=== PATIENT | female | born 1985 | race Hispanic/Latino ===

== ENCOUNTER 2018-09-20 19:16 | Inpatient (IN) | payer MEDICAID ==
--- NOTE | 2018-09-20 20:49 | C.PDOC ---
History Of Present Illness 33 year old female presents to the ED requesting alcohol detox. Patient has been pre-screened. She states her last drink was 3 days ago and she is Pt is complaining of cough and congestion. Otherwise, patient denies suicidal/homicida l ideation or any other substance abuse. Time Seen by Provider: 09/20/18 20:31 Chief Complaint (Nursing): Substance Abuse History Per: Patient History/Exam Limitations: no limitations Onset/Duration Of Symptoms: Days (3) Current Symptoms Are (Timing): Still Present Suicide/Self Injury Attempted (Context): None Modifying Factor(s): Alcohol Associated Symptoms: denies: Suicidal Thoughts, Suicidal Plan Involuntary Hold By: None Recent travel outside of the [place]: No Additional History Per: Patient Past Medical History Reviewed: Historical Data, Nursing Documentation, Vital Signs Vital Signs: Last Vital Signs Temp 98.6 F 09/20/18 19:35 Pulse 90 09/20/18 19:35 Resp 16 09/20/18 19:35 BP 119/81 09/20/18 19:35 Pulse Ox 97 09/20/18 19:35 - Medical History PMH: Arthritis, Bipolar Disorder, Crohn's Disease Surgical History: Appendectomy Family History: States: Unknown Family Hx - Social History Hx Alcohol Use: Yes Hx Substance Use: No - Immunization History Hx Tetanus Toxoid Vaccination: No Hx Influenza Vaccination: No Hx Pneumococcal Vaccination: No Review Of Systems Constitutional: Positive for: Other (generalized bodyaches) Cardiovascular: Negative for: Chest Pain Respiratory: Positive for: Cough. Negative for: Shortness of Breath Gastrointestinal: Negative for: Abdominal Pain Psych: Positive for: Other (alcohol detox ) Physical Exam - Physical Exam Appears: Non-toxic, No Acute Distress Skin: Normal Color, Warm, Dry Head: Atraumatic, Normacephalic Eye(s): bilateral: Normal Inspection, EOMI Oral Mucosa: Moist Neck: Supple Chest: Symmetrical, No Deformity, No Tenderness Cardiovascular: Rhythm Regular, Other Respiratory: Normal Breath Sounds, No Accessory Muscle Use, No Rales, Rhonchi, Wheezing (diffuse exp) Gastrointestinal/Abdominal: Normal Exam, Soft, No Tenderness Back: Normal Inspection Extremity: Normal ROM Extremity: Bilateral: Atraumatic Neurological/Psych: Normal Speech, Normal Cognition Gait: Steady ED Course And Treatment - Laboratory Results Result Diagrams: 09/20/18 21:35 09/20/18 21:35 O2 Sat by Pulse Oximetry: 97 (on RA) Pulse Ox Interpretation: Normal - Radiology CXR: Interpreted by Me, Viewed By Me CXR Interpretation: Yes: No Acute Disease. No: Infiltrates Progress Note: Patient received duonebs x 2 for wheezing and reports improvement of her symptoms. Pis medically cleared for crisis evaluation. 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 - Scribe Statement The provider has reviewed the documentation as recorded by the Scribe (Imani Olivares) All medical record entries made by the Scribe were at my direction and personally dictated by me. I have reviewed the chart and agree that the record accurately reflects my personal performance of the history, physical exam, medical decision making, and the department course for this patient. I have also personally directed, reviewed, and agree with the discharge instructions and disposition.
[2018-09-20 21:19] LABS: HCG,QUALITATIVE URINE NEGATIVE (NEGATIVE)
[2018-09-20 21:28] LABS: SQUAMOUS EPITHIAL 5 /hpf (0-5); URINE BACTERIA OCC (<OCC); URINE BILIRUBIN NEGATIVE (NEGATIVE); URINE BLOOD 3+ (NEGATIVE); URINE CLARITY Hazy (Clear); URINE GLUCOSE (UA) NORMAL (Normal); URINE LEUKOCYTE ESTERASE TRACE Leu/uL (Negative); URINE PROTEIN 2+ mg/dL (NEGATIVE)
[2018-09-20 21:29] LABS: URINE COLOR RED (YELLOW)
[2018-09-20 21:40] LABS: BASO # 0.1 K/uL (0.0-0.2); BASO % 0.5 % (0.0-2.0); EOS # 0.3 K/uL (0.0-0.7); EOS % 2.2 % (0.0-4.0); HEMOGLOBIN 12.4 g/dL (11.0-16.0); LYMPH # 2.6 K/uL (1.0-4.3); LYMPH % 19.5 % (20.0-40.0); MEAN CELL VOLUME 97.7 fL (81.0-99.0); MEAN CORPUSCULAR HEMOGLOBIN 32.6 pg (27.0-31.0); MEAN CORPUSCULAR HGB CONC 33.4 g/dL (33.0-37.0); MEAN PLATELET VOLUME 9.8 fL (7.2-11.7); MONO # 0.8 K/uL (0.0-0.8); MONO % 6.3 % (0.0-10.0); NEUT # 9.4 K/uL (1.8-7.0); NEUT % 71.5 % (50.0-75.0); RBC 3.79 Mil/uL (3.80-5.20); RED CELL DISTRIBUTION WIDTH 15.3 % (11.5-14.5); WHITE BLOOD COUNT 13.2 K/uL (4.8-10.8)
[2018-09-20] MEDS ORDERED: Albuterol-Ipratrop 3 mg / 0.5 (3 ml) UD ONE (21:49)
[2018-09-20] MEDS: Albuterol-Ipratrop 3 mg / 0.5 (3 ml) UD IH SCH ×2 (21:50→21:53)
[2018-09-20 21:58] LABS: BARBITURATES, UR NEGATIVE (NEGATIVE); BENZODIAZEPINES, UR POSITIVE (NEGATIVE); OPIATES, UR NEGATIVE (NEGATIVE); PHENCYCLIDINE, UR NEGATIVE (NEGATIVE)
[2018-09-20 22:01] LABS: ALB/GLOB RATIO 1.2 (1.0-2.1); ALBUMIN 4.2 g/dL (3.5-5.0); ALT/SGPT 53 U/L (9-52); AST/SGOT 46 U/L (14-36); BLOOD UREA NITROGEN 9 mg/dL (7-17); CALCIUM 8.9 mg/dl (8.6-10.4); GFR NON-AFRICAN AMERICAN > 60
--- NOTE | 2018-09-21 06:53 | PCM.BM ---
<Neha Meza - Last Filed: 09/21/18 06:51> Treatment Plan Problems - Problems identified on initial assessmt Alcohol Dependence Date Initiated: 09/21/18 Time Initiated: 02:00 Treatment assets and liabiliti Patient Assests: ADL independent Patient Liabilities: substance abuse - Milieu Protocol Maintain good personal hygiene: daily Encourage regular showers, daily Remind patient to perform daily oral care, daily Assist patient to perform ADL's Maintain personal safety: every shift Educate patient to report safety concerns to staff, every shift Monitor environment for contraband/sharps Medication safety: Monitor for expected outcome, potential side effects: every shift, Assess barriers to learning: every shift, Assess readiness for medication education: every shift <Mable Gunter - Last Filed: 09/21/18 11:59> Family Contact Family involvement: Family/SO is involved Family contact name: Mom Family contacted how many times per week?: 3 - Goals for Treatment Patient goals for treatment: Complete detox and resume methadone maintenance. Discharge/Continuing Care - Education Needs Education Needs: Family Diagnosis/Disease Process, Family Community resources, Patient Medication, Patient Diagnosis/Disease Process, Patient Coping Skills, Patient Anger Management skills, Patient Placement options, Patient Community resources - Discharge Discharge Criteria: No longer exhibiting s/s of withdrawal, Reduction of target symptoms Discharge to:: Home, With Family - Treatment Team Participation Patient/Family/SO Statement: 09/21/18 11:59 "I waan go back to my methadone program but I'll consider rehab if they take me on meth.." Discussed with Family/SO: No Was Patient/Family/SO present at Treatment Team Meeting: Yes
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
[2018-09-21] MEDS: Multiple Vitamins Tab PO SCH (09:25)
--- NOTE | 2018-09-21 09:59 | RAD ---
Chest x-ray two views HISTORY: Cough. Congestion. COMPARISON: None available. FINDINGS: Hyperinflation suggestive for COPD and or emphysematous changes. Diffuse increased interstitial lung markings. Nodular density in the left suprahilar region likely represents vessel on end. Heart size within normal limits. Degenerative changes in the spine. Impression: Hyperinflation suggestive for COPD and or emphysematous changes. Diffuse increased interstitial lung markings. Nodular density in the left suprahilar region likely represents vessel on end.
[2018-09-21] MEDS ORDERED: Venlafaxine 75 mg ER Cap PO SCH (11:00)
[2018-09-21] MEDS: Benzocaine/Menthol (Cepacol) Lozenge MT PRN (19:30)
[2018-09-22] MEDS: Multiple Vitamins Tab PO SCH (09:26)
[2018-09-22] MEDS: Benzocaine/Menthol (Cepacol) Lozenge MT PRN (09:30)
[2018-09-22] MEDS ORDERED: Venlafaxine 75 mg ER Cap PO ONE (10:00)
[2018-09-22] MEDS ORDERED: Venlafaxine 37.5 mg ER Cap PO ONE (10:00)
--- NOTE | 2018-09-22 11:18 | PCM.PYCHPN ---
Psychiatric Progress Note - Psychiatric Progress Note Patient seen today, length of contact: 15 min Patient Chief Complaint: I m withdrawing badly.' Problems Identified/Issues Discussed: Patient seen and evaluated, chart reviewed and discussed with the nurse. Pt reports some improvement in mood, and anxiety. Pt still reports withdrawal symptoms, including nausea, joint pains, cramps, sweating, headaches, and anxiety. Patient reports shortness of breath and wheezing.. Patient is compliant with medications and denies any side effects. Symptoms are improving but pt needs more time to stabilize. Support and psychoeducation given. Medication Change: Yes Medical Record Reviewed: Yes Mental Status Examination - Cognitive Function Orientation: Person, Place, Situation, Time Memory: Intact Attention: WNL Concentration: Poor Association: WNL Fund of Knowledge: Poor - Mood Mood: Depressed, Anxious, Other (irate) - Affect Affect: Other (intense) - Speech Speech: Soft - Formal Thought Process Formal Thought Process: No Impairment - Suicidal Ideation Suicidal Ideation: No - Homicidal Ideation Homicidal Ideation: No Goal/Treatment Plan - Goal/Treatment Plan Need for Continued Stay: Severe functional impairment Progress Toward Problem(s) and Goals/Treatment Plan: Alcohol withdrawal Alcohol use d/o--severe Bipolar d/o - unspecified Generalized Anxiety d/o Panic d/o PTSD Borderline personality d/o Opioid use d/o - severe, on maintenance Taper with Ativan (refused librium) Maintain at 40 mg methadone until she returns to her [facility] or a rehab Start Lamictal, Neurontin, Effexor XR Inderal as needed for anxiety (refused atarax) As needed medication All risks, benefits and alternatives of the meds discussed and the patient agreed and understood Attend groups and activities Supportive therapy and psychoeducation [place] for abstinence CBT for relapse prevention Encourage MAT Refer to rehab or IOP, and self-help groups Teach healthy lifestyle methods, i.e. diet, exercise, meditation Smoking cessation with CT Nicotine patch if needed Medicine was consulted
[2018-09-22] MEDS ORDERED: Albuterol-Ipratrop 3 mg / 0.5 (3 ml) UD INH PRN (13:12)
--- NOTE | 2018-09-22 14:20 | RAD ---
Date of service: 09/22/2018 HISTORY: wheezing COMPARISON: Of 09/20/2018 TECHNIQUE: Chest PA and lateral FINDINGS: LUNGS: No active pulmonary disease. PLEURA: No significant pleural effusion identified. No pneumothorax apparent. CARDIOVASCULAR: No aortic atherosclerotic calcification present. Normal cardiac size. No pulmonary vascular congestion. OSSEOUS STRUCTURES: No significant abnormalities. VISUALIZED UPPER ABDOMEN: Normal. OTHER FINDINGS: None. IMPRESSION: No active disease.
--- NOTE | 2018-09-22 15:12 | CP.PCM.CON ---
History of Present Illness - History of Present Illness History of Present Illness: PGY1 H&P for medical consult for hospitalist Dr. Reardon 33 y f w/ pmhx of crohns, herniated discs, hepc positive, ?COPD, polysubstance abuse including heroin, marijuana, anxiety, & bipolar presented to ED 2 days prior for ETOH detox. Patient currently in detox for ETOH and were consulted for wheezing. Pt states she generally has a wheeze; however, it has been worse over the past 3 days. Associated with the wheezing, pt has a cough for the past month with green sputum production along with subjective fevers, and congested nose. P atient also states she has lower left abdominal pain for the past 3 days. Patient states she was hospitalized for pneumonia about a month ago, however, signed out AMA and did not complete the full course. Patient denies chest pain, nausea, vomiting, diarrhea, hematuria, dysuria. Patient does state due to her crohns disease she typically has a bowel movement once a week. Additionally, she states she just ended her menstrual cycle about 1 day ago. PMD: Dr. Blancas ([place], [place]) PMHx: crohns, herniated discs, hepc positive, ?COPD, polysubstance abuse including heroin, marijuana, anxiety, & bipolar Meds (home): Methadone 80mg (currently 40mg inpatient), lamictal 200 daily, simbalta 90 mg daily, Klonipin 1mg bid, neurontin 600 mg TID PSHx: Appendectomy (2009) Allergies: Codeine, ziprasidone (anaphylaxis) SHx: 15 pack year smoking hx, heroin 20 bags daily (IV), quit 5 yrs prior, on methadone currently, 1 gallon of vodka for the past year Review of Systems - Constitutional Constitutional: absent: Anorexia, Night Sweats - EENT Eyes: absent: Blurred Vision, Loss of Peripheral Vision Nose/Mouth/Throat: absent: Nasal Trauma, Nose Pain, Bleeding Gums - Cardiovascular Cardiovascular: absent: Chest Pain, Irregular Heart Rhythm - Respiratory Respiratory: absent: Dyspnea - Gastrointestinal Gastrointestinal: Constipation. absent: Diarrhea - Genitourinary Genitourinary: absent: Change in Urinary Stream, Hematuria, Urinary Frequency - Musculoskeletal Musculoskeletal: absent: Arthralgias - Integumentary Integumentary: absent: Sores, Striae, Swelling - Neurological Neurological: absent: Abnormal Hearing, Behavioral Changes, Dizziness - Psychiatric Psychiatric: Anxiety. absent: Abnormal Sleep Pattern, Anhedonia Past Patient History - Past Social History Smoking Status: Heavy Smoker > 10 Cigarettes Daily - CARDIAC Hx Cardiac Disorders: No Hx Hypertension: No - PULMONARY Hx Tuberculosis: No - NEUROLOGICAL HX Cerebrovascular Accident: No Hx Seizures: No - HEMATOLOGICAL/ONCOLOGICAL Hx Cancer: No Hx Human Immunodeficiency Virus (HIV): No - MUSCULOSKELETAL/RHEUMATOLOGICAL Hx Arthritis: Yes - GASTROINTESTINAL Hx Crohn's Disease: Yes - GENITOURINARY/GYNECOLOGICAL Hx Sexually Transmitted Disorders: No - PSYCHIATRIC Hx Substance Use: Yes - SURGICAL HISTORY Hx Appendectomy: Yes Meds Allergies/Adverse Reactions: Allergies Allergy/AdvReac Type Severity Reaction Status Date / Time codeine Allergy Verified 09/20/18 19:33 ziprasidone [From Geodon] Allergy Verified 09/20/18 19:33 - Medications Medications: Current Medications Acetaminophen (Tylenol 325mg Tab) 650 mg PO Q6 PRN PRN Reason: Pain, moderate (4-7) Last Admin: 09/22/18 14:22 Dose: 650 mg Albuterol/Ipratropium (Duoneb 3 Mg/0.5 Mg (3 Ml) Ud) 3 ml INH RQ6 PRN PRN Reason: Wheezing Benzocaine/Menthol (Cepacol Sore Throat) 1 aaron MT Q2 PRN PRN Reason: Sore Throat Last Admin: 09/22/18 09:30 Dose: 1 aaron Clonidine HCl (Catapres) 0.1 mg PO Q4 PRN PRN Reason: Symptoms of alcohol withdrawl Folic Acid (Folic Acid) 1 mg PO DAILY [facility] Last Admin: 09/22/18 09:26 Dose: 1 mg Gabapentin (Neurontin) 600 mg PO TID [facility] Last Admin: 09/22/18 14:21 Dose: 600 mg Lamotrigine (Lamictal) 200 mg PO DAILY [facility] Lorazepam (Ativan) 2 mg PO Q8H [facility]; Taper Stop: 09/25/18 11:59 Last Admin: 09/22/18 13:00 Dose: Not Given Lorazepam (Ativan) 1 mg PO Q8H PRN PRN Reason: Symptoms of alcohol withdrawl Last Admin: 09/22/18 09:27 Dose: 1 mg Methadone HCl (Methadone) 40 mg PO DAILY [facility] Last Admin: 09/22/18 09:27 Dose: 40 mg Multivitamins (Hexavitamin) 1 tab PO DAILY [facility] Last Admin: 09/22/18 09:26 Dose: 1 tab Propranolol HCl (Inderal) 20 mg PO Q8H PRN PRN Reason: Anxiety Thiamine HCl (Vitamin B1 Tab) 100 mg PO DAILY [facility] Last Admin: 09/22/18 09:26 Dose: 100 mg Trazodone HCl (Desyrel) 100 mg PO HS PRN PRN Reason: Insomnia Last Admin: 09/21/18 21:15 Dose: 100 mg Venlafaxine HCl (Effexor Xr) 150 mg PO DAILY [facility] Physical Exam - Constitutional Appears: Non-toxic, No Acute Distress - Head Exam Head Exam: NORMAL INSPECTION - Eye Exam Eye Exam: EOMI, Normal appearance, PERRL - ENT Exam ENT Exam: Mucous Membranes Moist Additional comments: poor dentition, missing several teeth, no erythema noticed in oral airway - Respiratory Exam Respiratory Exam: Wheezes, NORMAL BREATHING PATTERN. absent: Rales, Rhonchi - Cardiovascular Exam Cardiovascular Exam: Tachycardia, +S1, +S2. absent: Systolic Murmur - GI/Abdominal Exam GI & Abdominal Exam: Normal Bowel Sounds, Soft, Tenderness Additional comments: Tenderness from suprabic region to LLQ - Extremities Exam Extremities exam: Positive for: full ROM, normal inspection. Negative for: calf tenderness, pedal edema - Neurological Exam Neurological exam: Alert, Oriented x3 - Psychiatric Exam Psychiatric exam: Anxious, Normal Mood - Skin Skin Exam: Dry, Intact, Normal Color, Warm Results - Vital Signs Recent Vital Signs: Last Vital Signs Temp 98.1 F 09/22/18 14:16 Pulse 102 H 09/22/18 14:16 Resp 18 09/22/18 14:16 BP 118/80 09/22/18 14:16 Pulse Ox 95 09/22/18 14:16 - Labs Result Diagrams: 09/20/18 21:35 09/20/18 21:35 Assessment & Plan - Assessment and Plan (Free Text) Assessment: 33 y f w/ pmhx of crohns, herniated discs, hepc positive, ?COPD, polysubstance abuse including heroin, marijuana, anxiety, & bipolar presented to ED 2 days prior for ETOH detox. Patient currently in detox for ETOH and were consulted for wheezing X 3 days Scattered wheezing Pneumonia vs COPD - 09/22 CXR - no active disease - afebrile 98.6F - F/u sputum culture, f/u leginella, mycoplasma, s pneumo - Duonebs Q6H PRN - Ciprofloxacin 500 mg BID - Fluticasone proprinate Painless hematuria - contamination vs renal carcinoma (extensive tobacco use hx) - urine RBCs - - squamous epithelial 5 - WBC 9, Protein 2+ - F/u renal ultrasound - F/u UA/ UC Polysubstance use disorder Bipolar disorder Anxiety PTSD - per psych Arthritis Herniated discs - chronic, no current complaints - will monitor History Crohns Disease History of Hep C positive - F/u with your outpatient GI doctor - F/u with your outpatient primary Prophylaxis - DVT: activity as tolerated, pt walking around, chemical contraindicated - Lactobacillus
[2018-09-22] MEDS ORDERED: Fluticasone-Vilanterol 100/25mcg Diskus INH SCH (15:30)
[2018-09-22] MEDS: Fluticasone Nasal 50 mcg/Spray NAS SCH (17:15)
[2018-09-22] MEDS: Albuterol 0.083% Inhal Sol (2.5 mg/3 mL) UD INH PRN (17:20)
--- NOTE | 2018-09-22 17:40 | US ---
Date of service: 09/22/2018 PROCEDURE: Ultrasound of the Kidneys HISTORY: painless hematuria, hx of smoking, r/o cancer COMPARISON: None available. TECHNIQUE: Sonogram of the kidneys. FINDINGS: RIGHT KIDNEY: Measures: 4.2 x 9.8 cm. Normal in size, contour and echogenicity. No stone, solid mass lesion or hydronephrosis visualized. LEFT KIDNEY: Measures: 5.3 x 10.5 cm. Normal in size, contour and echogenicity. Solitary midpole cortical calculus 4 mm nonobstructing. No solid mass lesion or hydronephrosis visualized. OTHER FINDINGS: None. IMPRESSION: Solitary left renal calculus nonobstructing midpole region 4 mm.
[2018-09-22 17:44] LABS: BASO # 0.1 K/uL (0.0-0.2); BASO % 0.5 % (0.0-2.0); EOS # 0.3 K/uL (0.0-0.7); HEMOGLOBIN 12.1 g/dL (11.0-16.0); LYMPH # 3.1 K/uL (1.0-4.3); LYMPH % 22.8 % (20.0-40.0); MEAN CELL VOLUME 98.3 fL (81.0-99.0); MEAN CORPUSCULAR HEMOGLOBIN 32.1 pg (27.0-31.0); MEAN CORPUSCULAR HGB CONC 32.6 g/dL (33.0-37.0); MEAN PLATELET VOLUME 9.9 fL (7.2-11.7); MONO % 7.3 % (0.0-10.0); NEUT # 9.1 K/uL (1.8-7.0); NEUT % 67.4 % (50.0-75.0); RBC 3.77 Mil/uL (3.80-5.20); RED CELL DISTRIBUTION WIDTH 15.2 % (11.5-14.5); WHITE BLOOD COUNT 13.4 K/uL (4.8-10.8)
[2018-09-22 18:05] LABS: ALB/GLOB RATIO 1.2 (1.0-2.1); ALBUMIN 4.3 g/dL (3.5-5.0); ALT/SGPT 39 U/L (9-52); AST/SGOT 31 U/L (14-36); BLOOD UREA NITROGEN 10 mg/dL (7-17); CALCIUM 8.9 mg/dl (8.6-10.4); GFR NON-AFRICAN AMERICAN > 60
[2018-09-22] MEDS: guaiFENesin 600 mg ER Tab PO SCH (18:59)
[2018-09-22] MEDS: Lactobacillus Acidophilus 500 MU Cap PO SCH (19:10)
[2018-09-23] MEDS: Fluticasone Nasal 50 mcg/Spray NAS SCH ×2 (04:46→17:03)
[2018-09-23 06:59] LABS: URINE BILIRUBIN NEGATIVE (NEGATIVE); URINE BLOOD NEGATIVE (NEGATIVE); URINE CLARITY Clear (Clear); URINE COLOR Yellow (YELLOW); URINE GLUCOSE (UA) NORMAL (Normal); URINE LEUKOCYTE ESTERASE NEG Leu/uL (Negative); URINE PROTEIN NEGATIVE (NEGATIVE); URINE UROBILINOGEN NORMAL mg/dL (0.2-1.0)
[2018-09-23 07:30] LABS: BASO # 0.1 K/uL (0.0-0.2); BASO % 0.9 % (0.0-2.0); EOS # 0.4 K/uL (0.0-0.7); EOS % 3.3 % (0.0-4.0); HEMOGLOBIN 12.9 g/dL (11.0-16.0); LYMPH # 3.1 K/uL (1.0-4.3); LYMPH % 28.6 % (20.0-40.0); MEAN CORPUSCULAR HEMOGLOBIN 33.6 pg (27.0-31.0); MEAN CORPUSCULAR HGB CONC 33.4 g/dL (33.0-37.0); MEAN PLATELET VOLUME 9.1 fL (7.2-11.7); MONO # 0.9 K/uL (0.0-0.8); NEUT # 6.3 K/uL (1.8-7.0); NEUT % 59.2 % (50.0-75.0); NRBC % 0.1 % (0.0-2.0); RBC 3.83 Mil/uL (3.80-5.20); RED CELL DISTRIBUTION WIDTH 15.7 % (11.5-14.5); WHITE BLOOD COUNT 10.7 K/uL (4.8-10.8)
[2018-09-23 07:43] LABS: MEAN CELL VOLUME 100.4 fL (81.0-99.0)
[2018-09-23 07:59] LABS: ALB/GLOB RATIO 1.1 (1.0-2.1); ALBUMIN 3.8 g/dL (3.5-5.0); ALT/SGPT 31 U/L (9-52); AST/SGOT 22 U/L (14-36); BLOOD UREA NITROGEN 7 mg/dL (7-17); CALCIUM 8.8 mg/dl (8.6-10.4); GFR NON-AFRICAN AMERICAN > 60
[2018-09-23] MEDS ORDERED: Fluticasone-Vilanterol 100/25mcg Diskus INH SCH (08:00)
[2018-09-23] MEDS: Lactobacillus Acidophilus 500 MU Cap PO SCH ×2 (08:25→20:46)
[2018-09-23] MEDS: guaiFENesin 600 mg ER Tab PO SCH ×2 (10:23→17:07)
[2018-09-23] MEDS: Multiple Vitamins Tab PO SCH (10:23)
[2018-09-23] MEDS: Venlafaxine 150 mg ER Cap PO SCH (10:23)
[2018-09-23] MEDS: Albuterol 0.083% Inhal Sol (2.5 mg/3 mL) UD INH PRN (11:29)
--- NOTE | 2018-09-23 12:34 | PCM.PYCHPN ---
Psychiatric Progress Note - Psychiatric Progress Note Patient seen today, length of contact: 15 min Patient Chief Complaint: I am feeling better. Problems Identified/Issues Discussed: Patient seen, chart reviewed, case discussed with the staff. Issues related to illness and treatment were discussed with the patient and staff. Reported compliant with treatment with no adverse effect. Tolerating treatment very well. Reported feeling better. Calm and cooperative. Awake, alert and oriented x3. Mood reported as anxious. Affect appropriate. Speech soft with good eye contact. Memory intact. Aftercare discussed with the patient. Denied any delusions, auditory or visual hallucinations, no suicidal ideations or homicidal ideation at the time of evaluation. Medical Problems: Crohn's disease. Hepatitis C. Asthma Diagnostic Results: Reviewed DSM 5 Symptoms Update: Some improvement with treatment. Medication Change: No Medical Record Reviewed: Yes Consults ordered or reviewed: Reviewed Mental Status Examination - Cognitive Function Orientation: Person, Place, Situation, Time Memory: Intact Attention: WNL Concentration: WNL Association: [facility] Fund of Knowledge: [facility] Decription of patient's judgement and insights: Fair - Mood Mood: Anxious - Affect Affect: Other (Appropriate) - Speech Speech: Soft - Formal Thought Process Formal Thought Process: No Impairment Psychotic Thoughts and Behaviors: None - Suicidal Ideation Suicidal Ideation: No - Homicidal Ideation Homicidal Ideation: No Goal/Treatment Plan - Goal/Treatment Plan Need for Continued Stay: Remain at risks for inpatient hospitalization, Discharge may exacerbated symptoms, Severe functional impairment Progress Toward Problem(s) and Goals/Treatment Plan: Some improvement with treatment. Patient education. Supportive therapy. CBT for relapse prevention. [place] for abstinence. Continue treatment as before. Patient wants to go to methadone maintenance treatment program for follow-up care after discharge from the hospital. Estimated Date of D/C: 09/25/18 - Smoking Cessation Smoking Cessation Initiated: No
--- NOTE | 2018-09-23 20:01 | CP.PCM.PN ---
Subjective - Date & Time of Evaluation Date of Evaluation: 09/23/18 Time of Evaluation: 11:00 - Subjective Subjective: resident medicine Progress Note Patient seen and examined at detox unit. No acute events reported overnight. Patient still reports of coughing and wheezing. Patient understands the importance of smoking cessation and is determined to quit after discharged from the hospital. Otherwise she denies having fever, chills, headache, shortness of breath, chest pain, nausea, or vomiting. Objective - Vital Signs/Intake and Output Vital Signs (last 24 hours): Temp Pulse Resp BP Pulse Ox 98.2 F 91 H 18 105/67 95 09/23/18 17:16 09/23/18 17:16 09/23/18 17:16 09/23/18 17:16 09/23/18 17:16 - Medications Medications: Current Medications Acetaminophen (Tylenol 325mg Tab) 650 mg PO Q6 PRN PRN Reason: Pain, moderate (4-7) Last Admin: 09/23/18 11:51 Dose: 650 mg Albuterol/Ipratropium (Duoneb 3 Mg/0.5 Mg (3 Ml) Ud) 3 ml INH RQ6 [facility] Benzocaine/Menthol (Cepacol Sore Throat) 1 aaron MT Q2 PRN PRN Reason: Sore Throat Last Admin: 09/22/18 09:30 Dose: 1 aaron Ciprofloxacin (Cipro) 500 mg PO BID [facility]; Protocol Last Admin: 09/23/18 17:07 Dose: 500 mg Clonidine HCl (Catapres) 0.1 mg PO Q4 PRN PRN Reason: Symptoms of alcohol withdrawl Last Admin: 09/23/18 18:34 Dose: 0.1 mg Fluticasone Propionate (Flonase) 2 spr TATE Q12H [facility] Last Admin: 09/23/18 17:03 Dose: Not Given Fluticasone/Vilanterol (Breo Ellipta 100-25 Mcg Inh) 1 puff INH RQD [facility] Folic Acid (Folic Acid) 1 mg PO DAILY [facility] Last Admin: 09/23/18 10:23 Dose: 1 mg Gabapentin (Neurontin) 600 mg PO TID [facility] Last Admin: 09/23/18 17:06 Dose: 600 mg Guaifenesin (Mucinex La) 600 mg PO BID [facility] Last Admin: 09/23/18 17:07 Dose: 600 mg Lactobacillus Acidophilus (Bacid Acidophilus) 1 cap PO Q12H [facility] Last Admin: 09/23/18 08:25 Dose: 1 cap Lamotrigine (Lamictal) 200 mg PO DAILY [facility] Last Admin: 09/23/18 10:24 Dose: 200 mg Lorazepam (Ativan) 2 mg PO Q12H [facility]; Taper Stop: 09/25/18 11:59 Last Admin: 09/23/18 11:51 Dose: 2 mg Lorazepam (Ativan) 1 mg PO Q8H PRN PRN Reason: Symptoms of alcohol withdrawl Last Admin: 09/22/18 09:27 Dose: 1 mg Methadone HCl (Methadone) 40 mg PO DAILY [facility] Last Admin: 09/23/18 10:23 Dose: 40 mg Multivitamins (Hexavitamin) 1 tab PO DAILY [facility] Last Admin: 09/23/18 10:23 Dose: 1 tab Propranolol HCl (Inderal) 20 mg PO Q8H PRN PRN Reason: Anxiety Thiamine HCl (Vitamin B1 Tab) 100 mg PO DAILY [facility] Last Admin: 09/23/18 10:22 Dose: 100 mg Trazodone HCl (Desyrel) 100 mg PO HS PRN PRN Reason: Insomnia Last Admin: 09/22/18 21:10 Dose: 100 mg Venlafaxine HCl (Effexor Xr) 150 mg PO DAILY [facility] Last Admin: 09/23/18 10:23 Dose: 150 mg - Labs Labs: 09/23/18 07:25 09/23/18 07:25 - Constitutional Appears: Well, No Acute Distress - Head Exam Head Exam: ATRAUMATIC, NORMAL INSPECTION, NORMOCEPHALIC - Eye Exam Eye Exam: EOMI, Normal appearance - ENT Exam ENT Exam: Mucous Membranes Moist, Normal Exam - Neck Exam Neck Exam: Full ROM, Normal Inspection - Respiratory Exam Respiratory Exam: Wheezes, NORMAL BREATHING PATTERN. absent: Respiratory Distress - Cardiovascular Exam Cardiovascular Exam: REGULAR RHYTHM, +S1, +S2. absent: Murmur - GI/Abdominal Exam GI & Abdominal Exam: Soft, Normal Bowel Sounds. absent: Tenderness - Extremities Exam Extremities Exam: Full ROM, Normal Capillary Refill, Normal Inspection. absent: Joint Swelling, Pedal Edema - Back Exam Back Exam: NORMAL INSPECTION - Neurological Exam Neurological Exam: Alert, Awake, Normal Gait, Oriented x3 - Psychiatric Exam Psychiatric exam: Normal Affect, Normal Mood - Skin Skin Exam: Dry, Normal Color, Warm Assessment and Plan - Assessment and Plan (Free Text) Assessment: Chronic bronchitis - 09/22 CXR - no active disease - afebrile, no leukocytosis - F/u sputum culture, f/u leginella, mycoplasma, s pneumo - Duonebs Q6H PRN - Breo Ellipta 100-25mcg 1puff RQD - Mucinex 600mg BID Painless hematuriaRenal Calculus - Renal ultrasound shows solitary left renal calculus nonobstructing midpole region 4mm - urine RBCs - 2000s - squamous epithelial 5 - WBC 9, Protein 2+ - repeat UA unremarkable - UC no growth - Heart healthy diet, encourage hydration Polysubstance use disorder Bipolar disorder Anxiety PTSD - per psych Arthritis Herniated discs - chronic, no current complaints - will monitor History Crohns Disease History of Hep C positive - F/u with your outpatient GI doctor - F/u with your outpatient primary Prophylaxis - DVT: activity as tolerated, pt walking around, chemical contraindicated - Lactobacillus
[2018-09-23] MEDS: Albuterol-Ipratrop 3 mg / 0.5 (3 ml) UD INH SCH (20:52)
[2018-09-24] MEDS: Albuterol-Ipratrop 3 mg / 0.5 (3 ml) UD INH SCH ×4 (01:40→19:45)
[2018-09-24] MEDS: Fluticasone Nasal 50 mcg/Spray NAS SCH ×2 (03:23→17:55)
[2018-09-24] MEDS: Lactobacillus Acidophilus 500 MU Cap PO SCH ×3 (08:33→21:06)
[2018-09-24 09:21] LABS: BASO % 0.5 % (0.0-2.0); EOS # 0.4 K/uL (0.0-0.7); EOS % 4.6 % (0.0-4.0); HEMOGLOBIN 12.7 g/dL (11.0-16.0); MEAN CELL VOLUME 100.8 fL (81.0-99.0); MEAN CORPUSCULAR HEMOGLOBIN 33.3 pg (27.0-31.0); MEAN PLATELET VOLUME 9.1 fL (7.2-11.7); MONO # 0.7 K/uL (0.0-0.8); MONO % 9.1 % (0.0-10.0); NEUT % 48.8 % (50.0-75.0); RBC 3.83 Mil/uL (3.80-5.20); RED CELL DISTRIBUTION WIDTH 15.5 % (11.5-14.5); WHITE BLOOD COUNT 8.2 K/uL (4.8-10.8)
[2018-09-24] MEDS: Venlafaxine 150 mg ER Cap PO SCH (09:22)
[2018-09-24] MEDS: guaiFENesin 600 mg ER Tab PO SCH ×2 (09:22→17:54)
[2018-09-24] MEDS: Multiple Vitamins Tab PO SCH (09:22)
[2018-09-24] MEDS: Fluticasone-Vilanterol 100/25mcg Diskus INH SCH (09:23)
--- NOTE | 2018-09-24 16:56 | CP.PCM.PN ---
Subjective - Date & Time of Evaluation Date of Evaluation: 09/24/18 Time of Evaluation: 09:15 - Subjective Subjective: Resident Progress Note Patient seen and examined at bedside. No acute events reported overnight. Patient still complains of mild wheezing and coughing. Smoking cessation was further reinforced. She denies having fever, chills, headache, shortness of breath, chest pain, nausea, or vomiting. Objective - Vital Signs/Intake and Output Vital Signs (last 24 hours): Temp Pulse Resp BP Pulse Ox 98.4 F 92 H 18 118/82 96 09/24/18 14:06 09/24/18 14:06 09/24/18 14:06 09/24/18 14:06 09/24/18 14:06 - Medications Medications: Current Medications Acetaminophen (Tylenol 325mg Tab) 650 mg PO Q6 PRN PRN Reason: Pain, moderate (4-7) Last Admin: 09/23/18 11:51 Dose: 650 mg Albuterol/Ipratropium (Duoneb 3 Mg/0.5 Mg (3 Ml) Ud) 3 ml INH RQ4 [facility] Last Admin: 09/24/18 14:45 Dose: 3 ml Benzocaine/Menthol (Cepacol Sore Throat) 1 aaron MT Q2 PRN PRN Reason: Sore Throat Last Admin: 09/22/18 09:30 Dose: 1 aaron Ciprofloxacin (Cipro) 500 mg PO BID [facility]; Protocol Last Admin: 09/24/18 11:02 Dose: 500 mg Clonidine HCl (Catapres) 0.1 mg PO Q4 PRN PRN Reason: Symptoms of alcohol withdrawl Last Admin: 09/24/18 09:22 Dose: 0.1 mg Famotidine (Pepcid) 20 mg PO BID [facility] Last Admin: 09/24/18 12:57 Dose: 20 mg Fluticasone Propionate (Flonase) 2 spr TATE BID [facility] Fluticasone/Vilanterol (Breo Ellipta 100-25 Mcg Inh) 1 puff INH RQD [facility] Last Admin: 09/24/18 09:23 Dose: 1 puff Folic Acid (Folic Acid) 1 mg PO DAILY [facility] Last Admin: 09/24/18 09:22 Dose: 1 mg Gabapentin (Neurontin) 600 mg PO TID [facility] Last Admin: 09/24/18 14:03 Dose: 600 mg Guaifenesin (Mucinex La) 600 mg PO BID [facility] Last Admin: 09/24/18 09:22 Dose: 600 mg Lactobacillus Acidophilus (Bacid Acidophilus) 1 cap PO Q12H [facility] Last Admin: 09/24/18 08:33 Dose: 1 cap Lamotrigine (Lamictal) 200 mg PO DAILY [facility] Last Admin: 09/24/18 09:22 Dose: 200 mg Lorazepam (Ativan) 2 mg PO Q24H [facility]; Taper Stop: 09/25/18 11:59 Last Admin: 09/24/18 11:03 Dose: 2 mg Lorazepam (Ativan) 1 mg PO Q8H PRN PRN Reason: Symptoms of alcohol withdrawl Last Admin: 09/23/18 20:49 Dose: 1 mg Methadone HCl (Methadone) 40 mg PO DAILY [facility] Last Admin: 09/24/18 09:23 Dose: 40 mg Multivitamins (Hexavitamin) 1 tab PO DAILY [facility] Last Admin: 09/24/18 09:22 Dose: 1 tab Prednisone (Prednisone Tab) 40 mg PO DAILY [facility] Stop: 09/29/18 12:01 Last Admin: 09/24/18 12:58 Dose: 40 mg Propranolol HCl (Inderal) 20 mg PO Q8H PRN PRN Reason: Anxiety Thiamine HCl (Vitamin B1 Tab) 100 mg PO DAILY [facility] Last Admin: 09/24/18 09:22 Dose: 100 mg Trazodone HCl (Desyrel) 100 mg PO HS PRN PRN Reason: Insomnia Last Admin: 09/23/18 20:48 Dose: 100 mg Venlafaxine HCl (Effexor Xr) 150 mg PO DAILY [facility] Last Admin: 09/24/18 09:22 Dose: 150 mg - Labs Labs: 09/24/18 09:14 09/23/18 07:25 - Constitutional Appears: Well, No Acute Distress - Head Exam Head Exam: ATRAUMATIC, NORMAL INSPECTION, NORMOCEPHALIC - Eye Exam Eye Exam: EOMI, Normal appearance - ENT Exam ENT Exam: Mucous Membranes Moist, Normal Exam - Neck Exam Neck Exam: Full ROM, Normal Inspection - Respiratory Exam Respiratory Exam: Clear to Ausculation Bilateral, Wheezes (improving), NORMAL BREATHING PATTERN. absent: Respiratory Distress - Cardiovascular Exam Cardiovascular Exam: REGULAR RHYTHM, +S1, +S2. absent: Murmur - Extremities Exam Extremities Exam: Full ROM, Normal Capillary Refill, Normal Inspection. 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 hospital discharge Renal Calculus - Renal ultrasound shows solitary left renal calculus nonobstructing midpole region 4mm - urine RBCs - 2000s - squamous epithelial 5 - WBC 9, Protein 2+ - repeat UA unremarkable - UC no growth - Heart healthy diet, encourage hydration Polysubstance use disorder Bipolar disorder Anxiety PTSD - per psych Arthritis Herniated discs - chronic, no current complaints - will monitor History Crohns Disease History of Hep C positive - F/u with your outpatient GI doctor - F/u with your outpatient primary Prophylaxis - DVT: activity as tolerated, patient ambulatory, chemical contraindicated - GI: Pepcid - Lactobacillus
--- NOTE | 2018-09-24 20:26 | PCM.PYCHPN ---
Psychiatric Progress Note - Psychiatric Progress Note Patient seen today, length of contact: 15 min Patient Chief Complaint: I am feeling better, I still have wheezing. Problems Identified/Issues Discussed: Patient seen, chart reviewed, case discussed with the staff. Issues related to illness and treatment were discussed with the patient and staff. Reported compliant with treatment with no adverse effect. Tolerating treatment very well. Reported feeling better. Still complaining about wheezing. Calm and cooperative. Awake, alert and oriented x3. Mood reported as anxious. Affect appropriate. Speech soft with good eye contact. Memory intact. Aftercare discussed with the patient. Denied any delusions, auditory or visual hallucinations, no suicidal ideations or homicidal ideation at the time of evaluation. Medical Problems: Crohn's disease. Hepatitis C. Asthma Diagnostic Results: Reviewed DSM 5 Symptoms Update: Improving with treatment for Medication Change: No Medical Record Reviewed: Yes Consults ordered or reviewed: Reviewed Mental Status Examination - Cognitive Function Orientation: Person, Place, Situation, Time Memory: Intact Attention: WNL Concentration: WNL Association: [facility] Fund of Knowledge: [facility] Decription of patient's judgement and insights: Fair - Mood Mood: Anxious - Affect Affect: Other (Appropriate) - Speech Speech: Appropriate - Formal Thought Process Formal Thought Process: No Impairment Psychotic Thoughts and Behaviors: None - Suicidal Ideation Suicidal Ideation: No - Homicidal Ideation Homicidal Ideation: No Goal/Treatment Plan - Goal/Treatment Plan Need for Continued Stay: Remain at risks for inpatient hospitalization, Discharge may exacerbated symptoms, Severe functional impairment Progress Toward Problem(s) and Goals/Treatment Plan: Some improvement with treatment. Patient education. Supportive therapy. CBT for relapse prevention. [place] for abstinence. Continue treatment as before. Patient wants to go to methadone maintenance treatment program for follow-up care after discharge from the hospital. Estimated Date of D/C: 09/25/18 - Smoking Cessation Smoking Cessation Initiated: No
[2018-09-25] MEDS: Albuterol-Ipratrop 3 mg / 0.5 (3 ml) UD INH SCH ×4 (00:59→12:24)
[2018-09-25] MEDS: Fluticasone-Vilanterol 100/25mcg Diskus INH SCH (08:59)
[2018-09-25] MEDS: Lactobacillus Acidophilus 500 MU Cap PO SCH (08:59)
[2018-09-25] MEDS: Multiple Vitamins Tab PO SCH (09:02)
[2018-09-25] MEDS: guaiFENesin 600 mg ER Tab PO SCH (09:03)
[2018-09-25] MEDS: Fluticasone Nasal 50 mcg/Spray NAS SCH (09:04)
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
[2018-09-25] MEDS: Venlafaxine 150 mg ER Cap PO SCH (09:42)
[2018-09-25 12:06] VITALS: BP 128/78; PULSE 87; RESP 20; TEMP 98.3; O2SAT 96
== END 2018-09-25 14:15 | disposition home or self-care (01) | DRG 744 ==
LOC: C.ER 19:16 → C.7D 22:50
PROVIDERS: ADMIT Psychiatry & Neurology Psychiatry; ATTEND Psychiatry & Neurology Psychiatry
PROC: HZ2ZZZZ Detoxification Services for Substance Abuse Treatment (ICD-10-PCS; principal; 2018-09-20)
PROC: GZ3ZZZZ Medication Management (ICD-10-PCS; 2018-09-20)
PROC: HZ59ZZZ Individual Psychotherapy for Substance Abuse Treatment, Supportive (ICD-10-PCS; 2018-09-20)
PROC: HZ80ZZZ Medication Management for Substance Abuse Treatment, Nicotine Replacement (ICD-10-PCS; 2018-09-20)
PROC: HZ46ZZZ Group Counseling for Substance Abuse Treatment, Psychoeducation (ICD-10-PCS; 2018-09-20)
DX: F10.230 Alcohol dependence with withdrawal, uncomplicated (principal); F11.10 Opioid abuse, uncomplicated; F31.9 Bipolar disorder, unspecified; F41.1 Generalized anxiety disorder; F17.210 Nicotine dependence, cigarettes, uncomplicated; F12.90 Cannabis use, unspecified, uncomplicated; F41.0 Panic disorder [episodic paroxysmal anxiety]; F43.10 Post-traumatic stress disorder, unspecified; F60.3 Borderline personality disorder; N20.0 Calculus of kidney; J44.9 Chronic obstructive pulmonary disease, unspecified; B19.20 Unspecified viral hepatitis C without hepatic coma; K50.90 Crohn's disease, unspecified, without complications; M19.90 Unspecified osteoarthritis, unspecified site; Z81.1 Family history of alcohol abuse and dependence; Z81.8 Family history of other mental and behavioral disorders; Z90.49 Acquired absence of other specified parts of digestive tract; Z91.5 Personal history of self-harm; Z59.0 Homelessness